=== PATIENT | female | born 1950 | race Caucasian/White ===

== ENCOUNTER 2022-07-29 20:43 | Emergency (ER) | payer MEDICARE ==
[~2022-07-29] VITALS: Ht 152.4 cm; Wt 73.9 kg
[~2022-07-29 20:43] MED LIST: ASCO500; ATOR10 PO; Adult Low Dose81 MG PO; Amiodarone HCl200 MG PO; ELIQUIS5 MG PO; METO50ER PO; Percocet 5-3251 EACH PO; Zofran Odt4 MG SL; [UNRECOGNIZED DRUG - CODE] PO
== END 2022-07-29 23:14 | disposition home or self-care (01) ==
LOC: ER 20:43
DX: S51.812A Laceration without foreign body of left forearm, initial encounter (principal); F17.210 Nicotine dependence, cigarettes, uncomplicated; W22.03XA Walked into furniture, initial encounter; Z79.899 Other long term (current) drug therapy; Z79.02 Long term (current) use of antithrombotics/antiplatelets
CPT/HCPCS: 12002; 99282-25